=== PATIENT | female | born 1955 | race African-American/Black ===

== ENCOUNTER → 2020-09-06 14:07 | Outpatient (CLI) | payer OTHER, SELFPAY ==
--- NOTE | ~2020-09-06 | US_ITS ---
EXAMINATION: US transvaginal DATE: 09/06/2020 14:51 INDICATION: Postmenopausal bleeding. Bleeding with intercourse. Comparison:No prior studies for comparison. TECHNIQUE: Multiple transabdominal and endovaginal sonographic images of the pelvis performed. FINDINGS: The uterus measures 6.5 x 4.9 x 6.4 cm. There are multiple uterine fibroids some of which a re partially calcified. Uterus is retroverted. Largest discrete fibroid measures approximately 3.5 cm . The endometrial complex measures 8 mm. The right ovary measures 2.1 x 1.4 x 1.9 cm and the left ovary measures 1.8 x 1.2 x 1.3 cm. There ar e small follicles in each ovary. Normal doppler signal in both ovaries. There is no free fluid in the pelvis. There are no abnormal masses seen on either side. IMPRESSION: 1. Thickened endomtrial complex. The differential diagnosis includes endometrial hyperplasia, polyp a nd carcinoma. Biopsy is recommended. 2: Multiple uterine fibroids, largest measuring up to 3.5 cm. Reviewed, dictated and finalized at location B. IMPRESSION: 1. Thickened endomtrial complex. The differential diagnosis includes endometria l hyperplasia, polyp and carcinoma. Biopsy is recommended. 2: Multiple uterine fibroids, largest measuring up to 3.5 cm.
== END ==
PROVIDERS: PCP Physician Assistant; Visit Provider Obstetrics & Gynecology Gynecology
DX: Z78.0 Asymptomatic menopausal state (principal); D25.9 Leiomyoma of uterus, unspecified; R93.89 Abnormal findings on diagnostic imaging of other specified body structures
CPT/HCPCS: 76830